=== PATIENT | male | born 1945 | race Caucasian/White ===

== ENCOUNTER 2016-08-18 05:20 | Day surgery (SDC) | payer MEDICARE, OTHER ==
[~2016-08-18 05:20] MED LIST: ALKA-SELTZER O1 EAC1 PO; COL-RITE100 M2 PO; COL-RITE100 MG PO; HYDROCODON-ACE1 EA15 PO; MIRALAX17 G2; MULTI VITAMIN1 EAC1 PO; MULTI VITAMIN1 EAC2 PO; MULTIVITAMINS1 EAC6 PO; OXYCODONE-APAP1 TAB PO; PERCOCET 10-321 EACH PO; PROBIOTIC1 EA10 PO; TRAMADOL HCL50 MG; TRIAMTERENE/HC1 EACH PO; ULTRAM50 M1 PO; VICODIN HP 10-1 EAC1 PO; VICODIN PO; VITAMIN D250000 UNI1 PO; [UNRECOGNIZED DRUG - OTHER]; [UNRECOGNIZED DRUG - OTHER] PO; [UNRECOGNIZED DRUG - OTHER] PO; [UNRECOGNIZED DRUG - REMARK]
== END 2016-08-18 14:15 ==
LOC: SHSB 05:20 → ORW 07:29 → PACU 10:08 → SHSB 10:58
PROC: 0WUF4JZ Supplement Abdominal Wall with Synthetic Substitute, Percutaneous Endoscopic Approach (ICD-10-PCS; principal; 2016-08-18)
PROC: 8E0W4CZ Robotic Assisted Procedure of Trunk Region, Percutaneous Endoscopic Approach (ICD-10-PCS; 2016-08-18)
DX: K43.9 Ventral hernia without obstruction or gangrene (principal); G40.909 Epilepsy, unspecified, not intractable, without status epilepticus; F41.9 Anxiety disorder, unspecified; M54.30 Sciatica, unspecified side; Z87.891 Personal history of nicotine dependence; Z88.8 Allergy status to other drugs, medicaments and biological substances; Z90.49 Acquired absence of other specified parts of digestive tract; Z90.79 Acquired absence of other genital organ(s); Z79.899 Other long term (current) drug therapy; Z93.6 Other artificial openings of urinary tract status; Z98.890 Other specified postprocedural states
CPT/HCPCS: C1781; J0131; J0690; J1885